=== PATIENT | male | born 1985 | race Asian ===

== ENCOUNTER 2017-12-15 13:13 | Observation (INO) ==
[2017-12-15 13:45] LABS: Basophils % 0.4 % (0.1-2.0); Eosinophils # 0.1 K/mm3 (0.0-0.4); Eosinophils % 0.9 % (0.1-12.0); Hematocrit 51.8 % (42.0-52.0); Hemoglobin 16.9 g/dL (14.1-18.0); Lymphocytes # 2.7 K/mm3 (0.7-4.5); Lymphocytes % 36.4 K/mm3 (10-50); Mean Corpuscular HGB Conc 32.5 g/dL (31.8-35.4); Mean Corpuscular Hemoglobin 28.4 pg (27.0-31.2); Mean Corpuscular Volume 87.4 fl (80-94); Mean Platelet Volume 6.9 fl (7.4-10.4); Monocytes # 0.3 K/mm3 (0.1-1.0); Monocytes % 4.7 % (1.7-9.3); Neutrophils # 4.2 K/mm3 (1.8-7.8); Neutrophils % 57.7 % (37.0-80.0); Platelet Count 300 K/mm3 (142-424); Red Blood Count 5.93 M/mm3 (4.60-6.20); Red Cell Distribution Width 13.2 % (11.5-17.5); White Blood Count 7.3 K/mm3 (4.8-10.8)
[2017-12-15 14:13] LABS: Alanine Aminotransferase 53 U/L (12-78); Albumin/Globulin Ratio 1.1 (1.1-1.8); Alkaline Phosphatase 132 U/L (46-116); Anion Gap 12.5 mEq/L (5-15); Aspartate Amino Transferase 18 U/L (15-37); Bilirubin,Total 0.4 mg/dL (0.2-1.0); Blood Urea Nitrogen 15 mg/dL (7-18); Calcium 9.4 mg/dL (8.5-10.1); Carbon Dioxide 27 mmol/L (21.0-32.0); Chloride 107 mmol/L (98-107); Creatine Kinase 151 U/L (39-308); Globulin 3.6 gm/dl (1.3-3.2); Glucose 128 mg/dL (74-106); Potassium 3.5 mmoL/L (3.5-5.1); Sodium 143 mmol/L (136-145); Total Protein,Serum 7.6 gm/dL (6.4-8.2)
--- NOTE | 2017-12-15 14:33 | Emergency Department Note ---
ED Disposition Clinical Impression: Vasovagal episode, Splinter hemorrhage of fingernail, Shoulder contusion, Abrasion of upper gum, Cervical spine disease Disposition: Still a Patient Condition on Discharge: Fair Instructions: DI for Syncope in Adults (Fainting), DI for Syncope in Children ( Fainting) - Critical Care Critical Care Time: No Attestation: On 12/15/17, the high probability of a clinically significant, sudden or life threatening deterioration of the following system(s) required my full and direct attention, intervention and personal management. The time I documented below is in addition to time spent performing reported procedures but includes the following listed in this critical care notation. Medical Decision Making - Juan Inquiry Pt receiving controlled substance: No Juan was queried for this patient: No Vital Signs: 12/15/17 13:21 Temperature 98.0 F Temperature Source Oral Pulse Rate [Right Radial] 56 L Respiratory Rate 20 Blood Pressure [Right Arm] 129/71 Blood Pressure Mean [Right Arm] 90 Blood Pressure Source [Right Arm] Automatic Cuff Blood Pressure Position [Right Arm] Sitting 02 Sat by Pulse Oximetry 98 Oxygen Delivery Method Room Air - Lab Data Lab Results 12/15/17 13:34: WBC 7.3, RBC 5.93, Hgb 16.9, Hct 51.8, MCV 87.4, MCH 28.4, MCHC 32.5, RDW 13.2, Plt Count 300, MPV 6.9 L, Neut % (Auto) 57.7, Lymph % (Auto) 36.4, [place] % (Auto) 4.7, Eos % (Auto) 0.9, Baso % (Auto) 0.4, Neut # (Auto) 4.2 , Lymph # (Auto) 2.7, [place] # (Auto) 0.3, Eos # (Auto) 0.1, Baso # (Auto) 0.0 12/15/17 13:34: Sodium 143, Potassium 3.5, Chloride 107, Carbon Dioxide 27, Anion Gap 12.5, BUN 15, Creatinine 0.88, Estimated Creat Clear 108, Estimated GFR 100, Est GFR ( Amer) 121, Glucose 128 H, Calcium 9.4, Total Bilirubin 0.4, AST 18, ALT 53, Alkaline Phosphatase 132 H, Total Creatine Kinase 151, CK-MB (CK-2) 1.8, CK-MB (CK-2) Rel Index 1.2, Troponin I < 0.02, Total Protein 7.6, Albumin 4.0, Globulin 3.6 H, Albumin/Globulin Ratio 1.1 12/15/17 13:34: Magnesium 2.0, Plasma/Serum Alcohol 0 Result diagrams: 12/15/17 13:34 12/15/17 13:34 Orders (Tests/Meds): ED MEDICATIONS Discontinued Medications Generic Name Dose Route Start Last Admin Trade Name Freq PRN Reason Stop Dose Admin Lactated Ringer's 1,000 mls @ 999 mls/hr 12/15/17 13:45 12/15/17 14:58 Lactated Ringer's 1000 Ml Bag IV 12/15/17 14:45 999 mls/hr .Q1H1M CHENTE Administration ORDERS Category Date Time Status Drug Screen,Urine Stat Lab 12/15/17 16:00 Received Urinalysis and Microscopic Stat Lab 12/15/17 16:00 Received ECG Request by /Raoul Stat Y 12/15/17 13:43 Stop Req - Radiology Data #1 Image(s): Chest, Shoulder Image Reviewed: Yes I reviewed the patient's radiology image, Yes I have reviewed radiologist's interpretation Preliminary Findings: Normal/NAD - CT Data CT Scan: Head, C-Spine, Other Time Received: 15:[address] Reviewed: Yes: I have viewed the radiologist's interpretation Preliminary Findings: Abnormal Findings Narrative: INDINGS: No fracture or dislocation evident. Mild lobular mucosal thickening involves the lateral wall the left maxillary sinus consistent with mucous retention cyst measuring up to 2 x 1.1 cm. No sinus air-fluid level. Ct Cervical lesion : MPRESSION: 1. No acute fracture. 2. Multiple lucencies of the cervical spine etiology indeterminate. Differential diagnosis includes multiple lipoma/hemangioma versus metastatic disease or multiple myeloma. Bone scan and MRI of the cervical spine without and with contrast may be of further value on outpatient basis. 3. Nonspecific thickening of the clivus which has a homogeneous appearance. I called Dr. Guthrie discussed the above findings and later on the spoke with care management about the need for MRI or bone. Medical Decision Narrative: Ct Cervical lesion : MPRESSION: 1. No acute fracture. 2. Multiple lucencies of the cervical spine etiology indeterminate. Differential diagnosis includes multiple lipoma/hemangioma versus metastatic disease or multiple myeloma. Bone scan and MRI of the cervical spine without and with contrast may be of further value on outpatient basis. 3. Nonspecific thickening of the clivus which has a homogeneous appearance. I called Dr. Guthrie discussed the above findings and later on the spoke with care management about the need for MRI or bone. Thalia Lovett from case management will discuss with Dr. Rosalind Guthrie a plan for further investigate. [address] Guthrie and he was admitted for syncope plan for further workup regarding his neck as an outpatient being case management recommendation. Syncope HPI - General Chief Complaint: Syncope Stated Complaint: Syncope Time Seen by Provider: 12/15/17 13:30 Mode of Arrival: EMS Limitations: No Limitations Description of Symptoms (Recalled from ER Triage Doc. by RN): Patient was working at the [employer] restaurant and passed out. He states, "He just fainted." States his neck hurts. 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 He fell on his left shoulder and face and became unconscious for a few minutes. The ambulance was called and upon arrival he was back to his normal mentation. He complained of left shoulder pain and left upper incisors pain. He denies headache neck pain chest pain or abdominal pain. I spoke to him through a flat cutter who works in another restaurant and he told me through the flat cutter that he has no medical problems he is on no medications, surgeries or taking drugs. MD complaint: loss of consciousness Onset (ago): minute(s) (less than 30 minutes prior to arrival.) Duration of episode: 5 -: minutes(s) Prodromal symptoms: none Witnessed: yes - by bystander Context: other (after a piece of shrimp got under his right thumb nail. ) Current symptoms: other (left shoulder pain ) Treatments prior to arrival: none - Related Data Allergies Allergy/AdvReac Type Severity Reaction Status Date / Time No Known Allergies Allergy Verified 12/15/17 13:32 [facility] History I have reviewed the patient's past medical history: Yes - Social History Smoking Status: Never smoker Alcohol Intake: never - Psychiatric History Expresses thoughts of harming self/others: None Suicide Plan Description: No Plan ROS Obtained: Yes All systems reviewed & no additional complaints Physical Exam - General General appearance: alert, in no apparent distress, other (No bleeding per ears or nose. ) - Head Head exam: atraumatic, normocephalic, normal inspection - Eye Eye exam: Present: normal appearance, PERRL, EOMI. Absent: scleral icterus - ENT ENT exam: Present: normal oropharynx, mucous membranes moist, TM's normal bilaterally, normal external ear exam, other (minor left upper lip abrasion, multiple dental crowns and work anteriorly, ) - Neck Neck exam: Present: normal inspection, full ROM, trachea midline. Absent: tenderness, meningismus, lymphadenopathy - Chest Chest inspection: Present: normal inspection, symmetric chest wall rise. Absent : tenderness - Respiratory Respiratory exam: Present: normal lung sounds bilaterally. Absent: respiratory distress - Cardiovascular Cardiovascular exam: Present: regular rate, normal rhythm. Absent: JVD - Abdominal Exam Abdominal exam: Present: soft, normal bowel sounds. Absent: distention, tenderness, guarding - Extremities Exam Extremities exam: Present: normal inspection, full ROM, tenderness, normal capillary refill, other (Tenderness over the left shoulder with no deformity or limitation of range of motion. ). Absent: calf tenderness - Back Exam Back exam: Present: normal inspection, other (Midline spine tenderness no chest wall tenderness. ). Absent: tenderness - Neurological Exam Neurological exam: Present: alert, oriented X3, CN II-XII intact, motor sensory deficit, reflexes normal - Psychiatric Psychiatric exam: Present: normal affect, normal mood - Skin Skin exam: Present: warm, dry, intact, normal color, other (1 cm splinter under the right thumb nail. ) - Lymphatic Lymphatic Findings: no adenopathy
[2017-12-15 16:09] LABS: Microscopic, Urine URINE MICROSCOPIC (MICROSCOPIC)
[2017-12-15 16:14] LABS: Appearance,Urine CLEAR (Clear); Bilirubin,Urine Negative (Negative); Blood, Urine Negative (Negative); Color,Urine YELLOW (Yellow); Glucose,Urine (UA) Negative (Negative); Ketones,Urine Negative (Negative); Leukocyte Esterase,Urine Negative (Negative); Protein,Urine Negative (Negative); Urobilinogen,Urine 0.2 EU/dl (0.2)
[2017-12-15 16:24] LABS: Amphetamine/Metha Screen,Urine Negative ng/mL (<1000); Barbiturates Screen,Urine Negative ng/mL (<200); Benzodiazepines Screen,Urine Negative ng/mL (200); Cannabinoid Screen,Urine Negative ng/mL (<50); Cocaine Screen,Urine Negative ng/g (<300); Methadone Screen,Urine Negative ng/mL (<300); Opiate Screen,Urine Negative ng/mL (<300); Phencyclidine Screen,Urine Negative ng/mL (<25)
[2017-12-15 16:32] LABS: Bacteria,Urine Trace /lpf; Squamous Epithelial Cell,Urine Occasional #/hpf (0-5)
--- NOTE | 2017-12-15 17:30 | History & Physical Report ---
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 He fell on his left shoulder and face and became unconscious for a few minutes. The ambulance was called and upon arrival he was back to his normal mentation. He complained of left shoulder pain and left upper incisors pain. He denies headache, neck pain, chest pain and abdominal pain. The ER MD spoke to him through a aerobics teacher who works in another restaurant and was told through the aerobics teacher that he has no medical problems, on no medications, has had no surgeries and takes no meds. <OconnellStephenieAmparo 12/15/17 17:38> [facility] History I have reviewed the patient's past medical history: Yes <Stephenie Oconnellhy 12/15 17:38> Comment: Patient reported through interpretator that he has no medical problems and has had no surgeries. <Oconnell,Amparo - 12/15/17 17:38> - *Social History Smoking Status: Never smoker <Oconnell,Amparo 12/15/17 17:38> Alcohol Intake: never <Oconnell,Amparo 12/15/17 17:38> - Psychiatric History Expresses thoughts of harming self/others: None <Amparo Oconnell 12/15/17 17: 38> Suicide Plan Description: No Plan <OconnellAmparo elder 12/15/17 17:38> *Family Hx:: no Diabetes <Amparo Oconnell 12/15/17 17:38> Review of Systems - Constitutional Reports headache(s) <Amparo Oconnell 12/15/17 17:38> - ENT Reports facial pain, Reports lip swelling <Amparo Oconnell 12/15/17 17:38> - *Cardiovascular Reports chest pain (From the fall) <Amparo Oconnell 12/15/17 17:38> - *Respiratory Denies shortness of breath <Amparo Oconnell 12/15/17 17:38> - *Gastrointestinal Denies abdominal pain <Amapro Oconnell 12/15/17 17:38> - *Genitourinary Denies difficulty urinating <Amparo Oconnell - 12/15/17 17:38> - *Musculoskeletal Comments: Left flank pain from the fall <Amparo Oconnell - 12/15/17 17:38> Meds Home Medications Medication Instructions Recorded Confirmed Type No Known Home Medications 12/15/17 12/15/17 History <Christian Guthrie - 12/16/17 08:52> Allergies Allergy/AdvReac Type Severity Reaction Status Date / Time No Known Allergies Allergy Verified 12/15/17 13:32 <Christian Guthrie - 12/16/17 08:52> Exam Vital signs and Labs for Last 24 Hours: Temp Pulse Resp BP Pulse Ox 98.4 F 57 L 18 119/74 98 12/16/17 07:46 12/16/17 07:46 12/16/17 07:46 12/16/17 07:46 12/16/17 07:46 Laboratory Results - last 24 hr 12/15/17 13:34: WBC 7.3, RBC 5.93, Hgb 16.9, Hct 51.8, MCV 87.4, MCH 28.4, MCHC 32.5, RDW 13.2, Plt Count 300, MPV 6.9 L, Neut % (Auto) 57.7, Lymph % (Auto) 36.4, [place] % (Auto) 4.7, Eos % (Auto) 0.9, Baso % (Auto) 0.4, Neut # (Auto) 4.2 , Lymph # (Auto) 2.7, [place] # (Auto) 0.3, Eos # (Auto) 0.1, Baso # (Auto) 0.0 12/15/17 13:34: Sodium 143, Potassium 3.5, Chloride 107, Carbon Dioxide 27, Anion Gap 12.5, BUN 15, Creatinine 0.88, Estimated Creat Clear 108, Estimated GFR 100, Est GFR ( Amer) 121, Glucose 128 H, Calcium 9.4, Total Bilirubin 0.4, AST 18, ALT 53, Alkaline Phosphatase 132 H, Total Creatine Kinase 151, CK-MB (CK-2) 1.8, CK-MB (CK-2) Rel Index 1.2, Troponin I < 0.02, Total Protein 7.6, Albumin 4.0, Globulin 3.6 H, Albumin/Globulin Ratio 1.1 12/15/17 13:34: Magnesium 2.0, Plasma/Serum Alcohol 0 12/15/17 16:00: Urine Color Yellow, Urine Appearance Clear, Urine pH 7.0, Ur Specific [place] 1.010, Urine Protein Negative, Urine Glucose (UA) Negative, Urine Ketones Negative, Urine Blood Negative, Urine Nitrate Negative, Urine Bilirubin Negative, Urine Urobilinogen 0.2, Ur Leukocyte Esterase Negative, Urine RBC None, Urine WBC None, Ur Squamous Epith Cells Occasional, Urine Bacteria Trace 12/15/17 16:00: Urine Opiates Screen Negative, Ur Barbituates Screen Negative, Ur Phencyclidine Scrn Negative, Ur Amphetamines Screen Negative, U Methamphetamines Scrn Negative, U Benzodiazepines Scrn Negative, Urine Cocaine Screen Negative, U Marijuana (THC) Screen Negative 12/15/17 17:43: Troponin I < 0.02 12/15/17 23:05: Troponin I < 0.02 12/16/17 05:20: Troponin I < 0.02 12/16/17 05:20: WBC 8.2, RBC 5.73, Hgb 16.2, Hct 50.3, MCV 87.7, MCH 28.3, MCHC 32.2, RDW 13.1, Plt Count 259, MPV 7.1 L, Neut % (Auto) 61.1, Lymph % (Auto) 30.7, [place] % (Auto) 6.6, Eos % (Auto) 1.3, Baso % (Auto) 0.3, Neut # (Auto) 5.0 , Lymph # (Auto) 2.5, [place] # (Auto) 0.5, Eos # (Auto) 0.1, Baso # (Auto) 0.0 12/16/17 05:20: Sodium 142, Potassium 4.0, Chloride 107, Carbon Dioxide 30, Anion Gap 9.0, BUN 10 D, Creatinine 0.80, Estimated Creat Clear 121, Estimated GFR 112, Est GFR ( Amer) 136, Glucose 96 D, Triglycerides 111, Cholesterol 190, LDL Cholesterol 124, VLDL Cholesterol 22, HDL Cholesterol 44, Cholesterol/HDL Ratio 4.3 H <Christian Guthrie - 12/16/17 08:52> Temp Pulse Resp BP Pulse Ox 98.0 F 64 19 119/66 99 12/15/17 17:01 12/15/17 17:01 12/15/17 17:01 12/15/17 17:01 12/15/17 17:01 Laboratory Results - last 24 hr 12/15/17 13:34: WBC 7.3, RBC 5.93, Hgb 16.9, Hct 51.8, MCV 87.4, MCH 28.4, MCHC 32.5, RDW 13.2, Plt Count 300, MPV 6.9 L, Neut % (Auto) 57.7, Lymph % (Auto) 36.4, [place] % (Auto) 4.7, Eos % (Auto) 0.9, Baso % (Auto) 0.4, Neut # (Auto) 4.2 , Lymph # (Auto) 2.7, [place] # (Auto) 0.3, Eos # (Auto) 0.1, Baso # (Auto) 0.0 12/15/17 13:34: Sodium 143, Potassium 3.5, Chloride 107, Carbon Dioxide 27, Anion Gap 12.5, BUN 15, Creatinine 0.88, Estimated Creat Clear 108, Estimated GFR 100, Est GFR ( Amer) 121, Glucose 128 H, Calcium 9.4, Total Bilirubin 0.4, AST 18, ALT 53, Alkaline Phosphatase 132 H, Total Creatine Kinase 151, CK-MB (CK-2) 1.8, CK-MB (CK-2) Rel Index 1.2, Troponin I < 0.02, Total Protein 7.6, Albumin 4.0, Globulin 3.6 H, Albumin/Globulin Ratio 1.1 12/15/17 13:34: Magnesium 2.0, Plasma/Serum Alcohol 0 12/15/17 16:00: Urine Color Yellow, Urine Appearance Clear, Urine pH 7.0, Ur Specific [place] 1.010, Urine Protein Negative, Urine Glucose (UA) Negative, Urine Ketones Negative, Urine Blood Negative, Urine Nitrate Negative, Urine Bilirubin Negative, Urine Urobilinogen 0.2, Ur Leukocyte Esterase Negative, Urine RBC None, Urine WBC None, Ur Squamous Epith Cells Occasional, Urine Bacteria Trace 12/15/17 16:00: Urine Opiates Screen Negative, Ur Barbituates Screen Negative, Ur Phencyclidine Scrn Negative, Ur Amphetamines Screen Negative, U Methamphetamines Scrn Negative, U Benzodiazepines Scrn Negative, Urine Cocaine Screen Negative, U Marijuana (THC) Screen Negative <Amparo Oconnell 12/15/17 17:38> I & O for Last 24 hours: Intake & Output 12/13/17 12/14/17 12/15/17 12/16/17 11:59 11:59 11:59 11:59 Intake Total 600 / 600 Balance 600 / 600 Weight 142 lb 4 oz <Christian Guthrie - 12/16/17 08:52> Intake & Output 12/13/17 12/14/17 12/15/17 12/16/17 11:59 11:59 11:59 11:59 Weight 142 lb 4 oz <Amparo Oconnell - 12/15/17 17:38> Radiology Reports for the Last 24 Hours: 12/15/2017 CT of the head IMPRESSION: Negative CT head without contrast. No acute finding 12/15/2017 CT of the cervical spine IMPRESSION: 1. No acute fracture. 2. Multiple lucencies of the cervical spine etiology indeterminate. Differential diagnosis includes multiple lipoma/hemangioma versus metastatic disease or multiple myeloma. Bone scan and MRI of the cervical spine without and with contrast may be of further value on outpatient basis. 3. Nonspecific thickening of the clivus which has a homogeneous appearance. 12/15/2017 CT of the face IMPRESSION: No acute fracture. Sinus disease 12/15/2017 chest x-ray IMPRESSION: Negative chest, no acute finding 12/15/2017 x-ray of the left shoulder IMPRESSION: Negative, no acute finding <Amparo Oconnell 12/15/17 17:38> - Constitutional no acute distress <Amparo Oconnell 12/15/17 17:38> Comments: Alert and eating his dinner. <Amparo Oconnell 12/15/17 17:38> - *Routine HEENT Exam Head: Present: normocephalic, abrasion (Of lip and left face and chin). Absent : atraumatic <Amparo Oconnell 12/15/17 17:38> Eye: Present: PERRL <KourtneyAmparo 12/15/17 17:38> ENT: Present: mucous membranes moist <KourtneyAmparo 12/15/17 17:38> - *Routine Neck Exam Absent: lymphadenopathy, thyromegaly <OconnellAmparo 12/15/17 17:38> - *Routine Respiratory Exam Present: CTA bilaterally (Anteriorly and posteriorly) <Amparo Oconnell 17:38> - *Routine Cardiovascular Exam Present: RRR <Amparo Oconnell 12/15/17 17:38> - *Routine Abdominal Exam Present: soft, normoactive bowel sounds. Absent: tenderness <Amparo Oconnell 12/15/17 17:38> - *Routine Extremities Exam Present: full ROM, pulses intact. Absent: edema, calf tenderness <Amparo Oconnell 12/15/17 17:38> - *Routine Neurological Exam Present: alert <Amparo Oconnell 12/15/17 17:38> H&P: Result - Labs Labs: Short CBC 12/15/17 12/16/17 Range/Units 13:34 05:20 WBC 7.3 8.2 (4.8-10.8) K/mm3 Hgb 16.9 16.2 (14.1-18.0) g/dL Hct 51.8 50.3 (42.0-52.0) % Plt Count 300 259 (142-424) K/mm3 BMP 12/15/17 12/16/17 13:34 05:20 Sodium 143 142 Potassium 3.5 4.0 Chloride 107 107 Carbon Dioxide 27 30 BUN 15 10 D Creatinine 0.88 0.80 Glucose 128 H 96 D Calcium 9.4 Cardiac Enzymes 12/15/17 12/15/17 12/15/17 Range/Units 13:34 17:43 23:05 Total Creatine Kinase 151 (39-308) U/L CK-MB (CK-2) 1.8 (0.0-3.6) ng/ml Troponin I < 0.02 < 0.02 < 0.02 (0.00-0.06) ng/ml 12/16/17 Range/Units 05:20 Total Creatine Kinase (39-308) U/L CK-MB (CK-2) (0.0-3.6) ng/ml Troponin I < 0.02 (0.00-0.06) ng/ml Liver Function 12/15/17 Range/Units 13:34 Total Bilirubin 0.4 (0.2-1.0) mg/dL AST 18 (15-37) U/L ALT 53 (12-78) U/L Alkaline Phosphatase 132 H (46-116) U/L Albumin 4.0 (3.4-5.0) gm/dL Urine 12/15/17 Range/Units 16:00 Urine Color Yellow (Yellow) Urine Appearance Clear (Clear) Urine pH 7.0 (5.0-8.5) Ur Specific [place] 1.010 (1.005-1.030) Urine Protein Negative (Negative) Urine Glucose (UA) Negative (Negative) <Christian Guthrie - 12/16/17 08:52> Short CBC 12/15/17 Range/Units 13:34 WBC 7.3 (4.8-10.8) K/mm3 Hgb 16.9 (14.1-18.0) g/dL Hct 51.8 (42.0-52.0) % Plt Count 300 (142-424) K/mm3 BMP 12/15/17 13:34 Sodium 143 Potassium 3.5 Chloride 107 Carbon Dioxide 27 BUN 15 Creatinine 0.88 Glucose 128 H Calcium 9.4 Cardiac Enzymes 12/15/17 Range/Units 13:34 Total Creatine Kinase 151 (39-308) U/L CK-MB (CK-2) 1.8 (0.0-3.6) ng/ml Troponin I < 0.02 (0.00-0.06) ng/ml Liver Function 12/15/17 Range/Units 13:34 Total Bilirubin 0.4 (0.2-1.0) mg/dL AST 18 (15-37) U/L ALT 53 (12-78) U/L Alkaline Phosphatase 132 H (46-116) U/L Albumin 4.0 (3.4-5.0) gm/dL Urine 12/15/17 Range/Units 16:00 Urine Color Yellow (Yellow) Urine Appearance Clear (Clear) Urine pH 7.0 (5.0-8.5) Ur Specific [place] 1.010 (1.005-1.030) Urine Protein Negative (Negative) Urine Glucose (UA) Negative (Negative) <Amparo Oconnell - 12/15/17 17:38> Assessment and Plan (1) Abrasion of upper gum Current visit: Yes Status: Acute Category: Medical Code(s): S00.512A - Abrasion of oral cavity, initial encounter (2) Shoulder contusion Current visit: Yes Status: Acute Category: Medical Code(s): S40.019A - Contusion of unspecified shoulder, initial encounter (3) Splinter hemorrhage of fingernail Current visit: Yes Status: Acute Category: Medical Code(s): L60.8 - Other nail disorders (4) Vasovagal episode Current visit: Yes Status: Acute Category: Medical Code(s): R55 - Syncope and collapse <Christian Guthrie - 12/16/17 08:52> (1) Abrasion of upper gum Current visit: Yes Status: Acute Category: Medical Code(s): S00.512A - Abrasion of oral cavity, initial encounter (2) Shoulder contusion Current visit: Yes Status: Acute Category: Medical Code(s): S40.019A - Contusion of unspecified shoulder, initial encounter (3) Splinter hemorrhage of fingernail Current visit: Yes Status: Acute Category: Medical Code(s): L60.8 - Other nail disorders (4) Vasovagal episode Current visit: Yes Status: Acute Category: Medical Code(s): R55 - Syncope and collapse <Amparo Oconnell - 12/15/17 17:26> - Assessment and plan all Dx Assessment and Plan for all problems:: Saw patient on day of admission, agree with above note. <Christian Guthrie 12/16/17 08:52> front desk monitor and observe over night <Amparo Oconnell 12/15/17 17:38>
[2017-12-16 05:43] LABS: Chol/HDL Ratio 4.3 (1-3.5)
[2017-12-16 05:46] LABS: Basophils % 0.3 % (0.1-2.0); Eosinophils # 0.1 K/mm3 (0.0-0.4); Eosinophils % 1.3 % (0.1-12.0); Hematocrit 50.3 % (42.0-52.0); Hemoglobin 16.2 g/dL (14.1-18.0); Lymphocytes # 2.5 K/mm3 (0.7-4.5); Lymphocytes % 30.7 K/mm3 (10-50); Mean Corpuscular HGB Conc 32.2 g/dL (31.8-35.4); Mean Corpuscular Hemoglobin 28.3 pg (27.0-31.2); Mean Corpuscular Volume 87.7 fl (80-94); Mean Platelet Volume 7.1 fl (7.4-10.4); Monocytes # 0.5 K/mm3 (0.1-1.0); Monocytes % 6.6 % (1.7-9.3); Neutrophils % 61.1 % (37.0-80.0); Platelet Count 259 K/mm3 (142-424); Red Blood Count 5.73 M/mm3 (4.60-6.20); Red Cell Distribution Width 13.1 % (11.5-17.5); White Blood Count 8.2 K/mm3 (4.8-10.8)
--- NOTE | 2017-12-16 07:35 | Pharmacy Consult Notes ---
[facility] Pharmacy VTE Monitoring - Patient Demographics Admission date: 12/15/17 Report Date: 12/16/17 Time: 07:35 Allergies/Adverse Reactions: Patient Allergies No Known Allergies Allergy (Verified 12/15/17 13:32) Height: 1.65 m Weight: 64.524 kg Patient Problems: Current Active Problems Vasovagal episode (Acute) Splinter hemorrhage of fingernail (Acute) Shoulder contusion (Acute) Abrasion of upper gum (Acute) Cervical spine disease (Acute) - VTE Risk Labs: VTE Related Lab Results Hgb 16.2 g/dL (14.1-18.0) 12/16/17 05:20 Hct 50.3 % (42.0-52.0) 12/16/17 05:20 Plt Count 259 K/mm3 (142-424) 12/16/17 05:20 BUN 10 mg/dL (7-18) D 12/16/17 05:20 Creatinine 0.80 mg/dL (0.70-1.30) 12/16/17 05:20 Estimated Creat Clear 121 mL/min (0-300) 12/16/17 05:20 VTE Score: 0 VTE Risk Level: Very Low Risk Clinical Trial Participant: No - Prophylaxis VTE Prophylaxis Ordered?: Yes Types of VTE Prophylaxis: TEDS Knee High
--- NOTE | 2017-12-16 07:48 | Progress Note ---
<Amparo Oconnell - Last Filed: 12/16/17 07:44> Internal Medicine - PN: Subj *Date: 12/16/17 *Time: 07:44 Interval history: Patient states that he is "okay". Does not understand specific questions in [place]. Indicates that he sore in his left jaw and left shoulder. Has been up to the bathroom. Per nursing: Patient slept. Heart rate decreased to in the 40s at times. Exam Vital signs and Labs for Last 24 Hours: Temp Pulse Resp BP Pulse Ox 98.7 F 50 L 18 116/60 99 12/16/17 03:34 12/16/17 04:00 12/16/17 03:34 12/16/17 03:34 12/16/17 03:34 Laboratory Results - last 24 hr 12/15/17 13:34: WBC 7.3, RBC 5.93, Hgb 16.9, Hct 51.8, MCV 87.4, MCH 28.4, MCHC 32.5, RDW 13.2, Plt Count 300, MPV 6.9 L, Neut % (Auto) 57.7, Lymph % (Auto) 36.4, [place] % (Auto) 4.7, Eos % (Auto) 0.9, Baso % (Auto) 0.4, Neut # (Auto) 4.2 , Lymph # (Auto) 2.7, [place] # (Auto) 0.3, Eos # (Auto) 0.1, Baso # (Auto) 0.0 12/15/17 13:34: Sodium 143, Potassium 3.5, Chloride 107, Carbon Dioxide 27, Anion Gap 12.5, BUN 15, Creatinine 0.88, Estimated Creat Clear 108, Estimated GFR 100, Est GFR ( Amer) 121, Glucose 128 H, Calcium 9.4, Total Bilirubin 0.4, AST 18, ALT 53, Alkaline Phosphatase 132 H, Total Creatine Kinase 151, CK-MB (CK-2) 1.8, CK-MB (CK-2) Rel Index 1.2, Troponin I < 0.02, Total Protein 7.6, Albumin 4.0, Globulin 3.6 H, Albumin/Globulin Ratio 1.1 12/15/17 13:34: Magnesium 2.0, Plasma/Serum Alcohol 0 12/15/17 16:00: Urine Color Yellow, Urine Appearance Clear, Urine pH 7.0, Ur Specific [place] 1.010, Urine Protein Negative, Urine Glucose (UA) Negative, Urine Ketones Negative, Urine Blood Negative, Urine Nitrate Negative, Urine Bilirubin Negative, Urine Urobilinogen 0.2, Ur Leukocyte Esterase Negative, Urine RBC None, Urine WBC None, Ur Squamous Epith Cells Occasional, Urine Bacteria Trace 12/15/17 16:00: Urine Opiates Screen Negative, Ur Barbituates Screen Negative, Ur Phencyclidine Scrn Negative, Ur Amphetamines Screen Negative, U Methamphetamines Scrn Negative, U Benzodiazepines Scrn Negative, Urine Cocaine Screen Negative, U Marijuana (THC) Screen Negative 12/15/17 17:43: Troponin I < 0.02 12/15/17 23:05: Troponin I < 0.02 12/16/17 05:20: Troponin I < 0.02 12/16/17 05:20: WBC 8.2, RBC 5.73, Hgb 16.2, Hct 50.3, MCV 87.7, MCH 28.3, MCHC 32.2, RDW 13.1, Plt Count 259, MPV 7.1 L, Neut % (Auto) 61.1, Lymph % (Auto) 30.7, [place] % (Auto) 6.6, Eos % (Auto) 1.3, Baso % (Auto) 0.3, Neut # (Auto) 5.0 , Lymph # (Auto) 2.5, [place] # (Auto) 0.5, Eos # (Auto) 0.1, Baso # (Auto) 0.0 12/16/17 05:20: Sodium 142, Potassium 4.0, Chloride 107, Carbon Dioxide 30, Anion Gap 9.0, BUN 10 D, Creatinine 0.80, Estimated Creat Clear 121, Estimated GFR 112, Est GFR ( Amer) 136, Glucose 96 D, Triglycerides 111, Cholesterol 190, LDL Cholesterol 124, VLDL Cholesterol 22, HDL Cholesterol 44, Cholesterol/HDL Ratio 4.3 H I & O for Last 24 hours: Intake & Output 12/13/17 12/14/17 12/15/17 12/16/17 11:59 11:59 11:59 11:59 Intake Total 360 / 360 Balance 360 / 360 Weight 142 lb 4 oz - Constitutional no acute distress Comments: Sitting up in the bed eating his breakfast - *Routine Respiratory Exam Present: CTA bilaterally (Anteriorly and posteriorly) - *Routine Cardiovascular Exam Present: RRR (Monitor showing normal sinus rhythm in the 70s at present) - *Routine Abdominal Exam Present: soft, normoactive bowel sounds. Absent: tenderness - *Routine Extremities Exam Absent: edema, calf tenderness Comments: Right thumb without edema or erythema. Moves all extremities without difficulty. - *Routine Neurological Exam Present: alert Seems oriented. Cannot understand [place]. Assessment and Plan (1) Abrasion of upper gum Current visit: Yes Status: Acute Category: Medical Code(s): S00.512A - Abrasion of oral cavity, initial encounter (2) Shoulder contusion Current visit: Yes Status: Acute Category: Medical Code(s): S40.019A - Contusion of unspecified shoulder, initial encounter (3) Splinter hemorrhage of fingernail Current visit: Yes Status: Acute Category: Medical Code(s): L60.8 - Other nail disorders (4) Vasovagal episode Current visit: Yes Status: Acute Category: Medical Code(s): R55 - Syncope and collapse - Assessment and plan all Dx Assessment and Plan for all problems:: Discharge to home today. <Christian Guthrie - Last Filed: 12/16/17 09:11> Internal Medicine - PN: Subj *Date: 12/16/17 *Time: 09:08 Exam Vital signs and Labs for Last 24 Hours: Temp Pulse Resp BP Pulse Ox 98.4 F 57 L 18 119/74 98 12/16/17 07:46 12/16/17 07:46 12/16/17 07:46 12/16/17 07:46 12/16/17 07:46 Laboratory Results - last 24 hr 12/15/17 13:34: WBC 7.3, RBC 5.93, Hgb 16.9, Hct 51.8, MCV 87.4, MCH 28.4, MCHC 32.5, RDW 13.2, Plt Count 300, MPV 6.9 L, Neut % (Auto) 57.7, Lymph % (Auto) 36.4, [place] % (Auto) 4.7, Eos % (Auto) 0.9, Baso % (Auto) 0.4, Neut # (Auto) 4.2 , Lymph # (Auto) 2.7, [place] # (Auto) 0.3, Eos # (Auto) 0.1, Baso # (Auto) 0.0 12/15/17 13:34: Sodium 143, Potassium 3.5, Chloride 107, Carbon Dioxide 27, Anion Gap 12.5, BUN 15, Creatinine 0.88, Estimated Creat Clear 108, Estimated GFR 100, Est GFR ( Amer) 121, Glucose 128 H, Calcium 9.4, Total Bilirubin 0.4, AST 18, ALT 53, Alkaline Phosphatase 132 H, Total Creatine Kinase 151, CK-MB (CK-2) 1.8, CK-MB (CK-2) Rel Index 1.2, Troponin I < 0.02, Total Protein 7.6, Albumin 4.0, Globulin 3.6 H, Albumin/Globulin Ratio 1.1 12/15/17 13:34: Magnesium 2.0, Plasma/Serum Alcohol 0 12/15/17 16:00: Urine Color Yellow, Urine Appearance Clear, Urine pH 7.0, Ur Specific [place] 1.010, Urine Protein Negative, Urine Glucose (UA) Negative, Urine Ketones Negative, Urine Blood Negative, Urine Nitrate Negative, Urine Bilirubin Negative, Urine Urobilinogen 0.2, Ur Leukocyte Esterase Negative, Urine RBC None, Urine WBC None, Ur Squamous Epith Cells Occasional, Urine Bacteria Trace 12/15/17 16:00: Urine Opiates Screen Negative, Ur Barbituates Screen Negative, Ur Phencyclidine Scrn Negative, Ur Amphetamines Screen Negative, U Methamphetamines Scrn Negative, U Benzodiazepines Scrn Negative, Urine Cocaine Screen Negative, U Marijuana (THC) Screen Negative 12/15/17 17:43: Troponin I < 0.02 12/15/17 23:05: Troponin I < 0.02 12/16/17 05:20: Troponin I < 0.02 12/16/17 05:20: WBC 8.2, RBC 5.73, Hgb 16.2, Hct 50.3, MCV 87.7, MCH 28.3, MCHC 32.2, RDW 13.1, Plt Count 259, MPV 7.1 L, Neut % (Auto) 61.1, Lymph % (Auto) 30.7, [place] % (Auto) 6.6, Eos % (Auto) 1.3, Baso % (Auto) 0.3, Neut # (Auto) 5.0 , Lymph # (Auto) 2.5, [place] # (Auto) 0.5, Eos # (Auto) 0.1, Baso # (Auto) 0.0 12/16/17 05:20: Sodium 142, Potassium 4.0, Chloride 107, Carbon Dioxide 30, Anion Gap 9.0, BUN 10 D, Creatinine 0.80, Estimated Creat Clear 121, Estimated GFR 112, Est GFR ( Amer) 136, Glucose 96 D, Triglycerides 111, Cholesterol 190, LDL Cholesterol 124, VLDL Cholesterol 22, HDL Cholesterol 44, Cholesterol/HDL Ratio 4.3 H I & O for Last 24 hours: Intake & Output 12/13/17 12/14/17 12/15/17 12/16/17 11:59 11:59 11:59 11:59 Intake Total 600 / 600 Balance 600 / 600 Weight 142 lb 4 oz Assessment and Plan (1) Abrasion of upper gum Current visit: Yes Status: Acute Category: Medical Code(s): S00.512A - Abrasion of oral cavity, initial encounter (2) Shoulder contusion Current visit: Yes Status: Acute Category: Medical Code(s): S40.019A - Contusion of unspecified shoulder, initial encounter (3) Splinter hemorrhage of fingernail Current visit: Yes Status: Acute Category: Medical Code(s): L60.8 - Other nail disorders (4) Vasovagal episode Current visit: Yes Status: Acute Category: Medical Code(s): R55 - Syncope and collapse - Assessment and plan all Dx Assessment and Plan for all problems:: Saw patient, concur with above note. Used a phone bone char kiln tender service to inform patient of his CT scan results. Will provide a copy of radiology results including images for his future outpatient visits.
--- NOTE | 2017-12-16 21:27 | Discharge Summary ---
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 He fell on his left shoulder and face and became unconscious for a few minutes. The ambulance was called and upon arrival he was back to his normal mentation. He complained of left shoulder pain and left upper incisor pain. He denies headache, neck pain, chest pain and abdominal pain. The ER MD spoke to him through a log hooker who works in another restaurant and was told through the log hooker that he has no medical problems, on no medications, has had no surgeries and takes no meds. Hospital Course Hospital Course: His multiple CT's and X-rays showed no acute fracture. He was admitted overnight for observation and was placed on a surveillance monitor. He did well and had no further episodes. He was stable to be discharged home. Objective Vital signs: Temp Pulse Resp BP Pulse Ox 98.4 F 58 L 18 119/74 98 12/16/17 07:46 12/16/17 08:35 12/16/17 07:46 12/16/17 07:46 12/16/17 08:35 Narrative: - Constitutional no acute distress Comments: Alert and eating his dinner. - *Routine HEENT Exam Head: Present: normocephalic, abrasion (Of lip and left face and chin). Absent : atraumatic Eye: Present: PERRL ENT: Present: mucous membranes moist - *Routine Neck Exam Absent: lymphadenopathy, thyromegaly - *Routine Respiratory Exam Present: CTA bilaterally (Anteriorly and posteriorly) - *Routine Cardiovascular Exam Present: RRR - *Routine Abdominal Exam Present: soft, normoactive bowel sounds. Absent: tenderness - *Routine Extremities Exam Present: full ROM, pulses intact. Absent: edema, calf tenderness - *Routine Neurological Exam Present: alert Results Labs on day of discharge: Labs from last 24 hours 12/16/17 12/16/17 12/16/17 05:20 05:20 05:20 WBC 8.2 RBC 5.73 Hgb 16.2 Hct 50.3 MCV 87.7 MCH 28.3 MCHC 32.2 RDW 13.1 Plt Count 259 MPV 7.1 L Neut % (Auto) 61.1 Lymph % (Auto) 30.7 [place] % (Auto) 6.6 Eos % (Auto) 1.3 Baso % (Auto) 0.3 Neut # (Auto) 5.0 Lymph # (Auto) 2.5 [place] # (Auto) 0.5 Eos # (Auto) 0.1 Baso # (Auto) 0.0 Sodium 142 Potassium 4.0 Chloride 107 Carbon Dioxide 30 Anion Gap 9.0 BUN 10 D Creatinine 0.80 Estimated Creat Clear 121 Estimated GFR 112 Est GFR ( Amer) 136 Glucose 96 D Troponin I < 0.02 Triglycerides 111 Cholesterol 190 LDL Cholesterol 124 VLDL Cholesterol 22 HDL Cholesterol 44 Cholesterol/HDL Ratio 4.3 H 12/15/17 23:05 WBC RBC Hgb Hct MCV MCH MCHC RDW Plt Count MPV Neut % (Auto) Lymph % (Auto) [place] % (Auto) Eos % (Auto) Baso % (Auto) Neut # (Auto) Lymph # (Auto) [place] # (Auto) Eos # (Auto) Baso # (Auto) Sodium Potassium Chloride Carbon Dioxide Anion Gap BUN Creatinine Estimated Creat Clear Estimated GFR Est GFR ( Amer) Glucose Troponin I < 0.02 Triglycerides Cholesterol LDL Cholesterol VLDL Cholesterol HDL Cholesterol Cholesterol/HDL Ratio DS: Diagnosis - Discharge Diagnosis (1) Abrasion of upper gum Status: Acute (2) Shoulder contusion Status: Acute (3) Splinter hemorrhage of fingernail Status: Acute (4) Vasovagal episode Status: Acute Discharge Plan - Patient Discharge Instructions ACTIVITY: Continue current activity DIET: continue same diet Patient Instructions: DI for Syncope in Adults (Fainting), Contusion, Fainting - Follow up Plan Unknown provider or service follow up:: 12/16/17 09:12 With MD of patient's choice within the next month. Disposition: Home, Self-Group Home Medications: Home Medications Medication Instructions Recorded Confirmed Type No Known Home Medications 12/15/17 12/15/17 History Prescriptions/Medication Reconciliation: No Action No Known Home Medications
== END 2017-12-16 11:25 | disposition home or self-care (01) ==
LOC: ER 13:13 → 2ND 13:13
PROVIDERS: ADMIT Family Medicine; ATTEND Family Medicine
DX: R55 Syncope and collapse